=== PATIENT | male | born 1970 | race Caucasian/White ===

== ENCOUNTER 2020-09-13 15:49 | Emergency (ER) | payer OTHER, SELFPAY ==
--- NOTE | ~2020-09-13 | CT_ITS ---
EXAMINATION: CT BRAIN W/O DATE: 09/13/2020 16:36 INDICATION: Head injury TECHNIQUE: Computed tomography (CT) of the head was performed without intravenous contrast. The dose- length product was 681.00 mGy-cm. The mA was adjusted according to patient size. Iterative reconstruc tion technique was employed. COMPARISON: No prior studies for comparison. FINDINGS: Normal brain parenchymal volume for age. Normal mcfadden-white differentiation. No acute intrac ranial hemorrhage, infarction, mass or mass effect. There is left frontal scalp swelling. No ventriculomegaly or midline shift. Midline sagittal images demonstrate a normal corpus callosum, c raniovertebral junction and sella turcica. Basilar cisterns are patent. There is mucosal thickening of the ethmoid sinuses. Small left mastoid effusion. No depressed skull f ractures. IMPRESSION: 1. No acute intracranial abnormality. Reviewed, dictated and finalized at location B.
[2020-09-13 15:53] VITALS: BP 129/90; PULSE 66; RESP 18; O2SAT 100
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
[2020-09-13 17:57] VITALS: BP 120/84; PULSE 57; RESP 18; O2SAT 100
== END 2020-09-13 17:58 | disposition home or self-care (01) ==
PROVIDERS: Emergency Provider General Practice
DX: S01.112A Laceration without foreign body of left eyelid and periocular area, initial encounter (principal); E78.5 Hyperlipidemia, unspecified; I10 Essential (primary) hypertension; I25.2 Old myocardial infarction; Z95.5 Presence of coronary angioplasty implant and graft; Z87.442 Personal history of urinary calculi; Z79.02 Long term (current) use of antithrombotics/antiplatelets; Z79.82 Long term (current) use of aspirin; W21.04XA Struck by golf ball, initial encounter
CPT/HCPCS: 12011; 70450; 99284

== ENCOUNTER 2023-05-07 16:38 | Observation (INO) | payer OTHER, SELFPAY ==
--- NOTE | ~2023-05-07 | CT_ITS ---
EXAMINATION: CT abdomen pelvis wo con DATE: 05/07/2023 19:43 INDICATION: left flank pain TECHNIQUE: Computed tomography (CT) of the abdomen and pelvis was performed without intravenous contr ast. Automated exposure control and iterative reconstruction technique were employed. The dose-length product was 236.19 mGy-cm. COMPARISON: None. FINDINGS: Lower thorax: Coronary artery calcification. Small hiatal hernia. Liver: Normal. Biliary/Gallbladder: Gallbladder is normal. No bile duct dilation. Pancreas: No mass or duct dilation. Spleen: Normal. Adrenals:No mass. Kidneys: Multiple bilateral nephroliths, measuring up to 5 mm in the right lower pole and up to 11 mm in the left midpole. 10 mm and 6 mm stones are likely lodged at the left UPJ. Moderate left caliecta sis and pelviectasis. Moderate left perinephric stranding. No right hydronephrosis. No suspicious mas s. GI tract: No small or large bowel dilation. Normal appendix. Diverticulosis without diverticulitis. Mesentery/Peritoneum: No ascites, mass, or free air. Retroperitoneum: No mass. Atherosclerotic abdominal aortic and/or arterial calcifications. Pelvis: Pelvic organs are within normal limits. Soft Tissues: Soft tissues and body wall unremarkable. Bones: No acute osseous finding. Right-sided partial sacralization of L5. IMPRESSION: Left UPJ obstruction by two stones measuring 10 and 6 mm, with moderate obstructive uropathy. Reviewed, dictated and finalized at location K. SCRIPT UI DEVELOPER IMPRESSION: Left UPJ obstruction by two stones measuring 10 and 6 mm, with moderate obstruc tive uropathy.
--- NOTE | ~2023-05-07 | XR_ITS ---
EXAMINATION: XR retrograde pyelo w/stent LT INDICATION: Left-sided retrograde pyelogram TECHNIQUE: 32 intraoperative fluoroscopic images are submitted for review. Total fluoroscopic time wa s 102.1 seconds. COMPARISON: CT, 05/07/2023 FINDINGS: Fluoroscopic images demonstrate stones of the left kidney and left renal pelvis. A left int ernal ureteral stent is placed in expected position. IMPRESSION: 1. Stones in the left renal pelvis with internal ureteral stent placed in expected position. Please r efer to procedure note for full details. Reviewed, dictated and finalized at location B. ING MACHINE TENDER IMPRESSION: 1. Stones in the left renal pelvis with internal ureteral stent placed in expec ifeanyi position. Please refer to procedure note for full details.
[2023-05-07 17:07] VITALS: BP 132/92; PULSE 65; RESP 16; TEMP 36.8; O2SAT 100
[2023-05-07 19:08] LABS: Basophils Percent Auto 0.2 % (0.2-1.2); Eosinophils Percent Auto 0.1 % (0-4.4); Hematocrit 46.1 % (42.0-52.0); Hemoglobin 15.5 g/dL (14.0-18.0); Immature Granulocyte Absolute 0.09 K/mm3 (0.00-0.031); Immature Granulocyte Percent A 0.6 % (0-0.5); Lymphocytes Absolute Auto 1.51 K/mm3 (0.9-3.2); Lymphocytes Percent Auto 9.9 % (18.3-44.2); Mean Corpuscular HGB Conc 33.6 g/dl (32-36); Mean Corpuscular Volume 89.2 fl (80-100); Mean Platelet Volume 10.7 fl (7.4-10.4); Monocytes Absolute Auto 0.9 K/mm3 (0.1-0.6); Monocytes Percent Auto 5.7 % (2.6-8.5); Neutrophils Absolute Auto 12.7 K/mm3 (1.3-6.7); Neutrophils Percent Auto 83.5 % (45.5-73.1); Platelet Count Result 321 k/mm3 (150-375); Red Blood Count 5.17 M/mm3 (4.6-6.20); Red Cell Distribution Width 13.3 % (11.5-14.5); White Blood Count 15.2 K/mm3 (4.5-10.0)
[2023-05-07 19:09] LABS: Appearance Urine Clear (Clear); Bacteria Urine None Seen /hpf; Bilirubin Urine Negative (Negative); Blood Urine 3+ (Negative); Color Urine Yellow (Yellow); Glucose Urine UA Negative (Negative); Ketones Urine Trace mg/dL (Negative); Leukocyte Esterase Ur Negative LEU/UL (Negative); Nitrate Urine Negative (Negative); Non Pathogenic Casts 0-2; Protein Urine Negative (Negative); RBC Urine >100 /hpf (0-2); Specific Grav Ur 1.017 (1.001-1.035); Squamous Epithelial Cell Urine None seen /hpf (Few); WBC Urine 0-5 /hpf
[2023-05-07 19:15] LABS: Add Urine Microscopic? YES
[2023-05-07 19:18] LABS: Alanine Aminotransferase 31 U/L (6-50); Albumin Level 4.8 g/dL (3.5-5.1); Alkaline Phosphatase 158 U/L (38-126); Anion Gap 12 mmol/L (8-16); Aspartate Amino Transferase 31 U/L (17-59); Bilirubin,Total 0.8 mg/dL (0.2-1.3); Blood Urea Nitrogen 21 mg/dL (9-20); Carbon Dioxide 22 mmol/L (22-30); Chloride 107 mmol/L (98-107); Estimated CRCL calculation 50 ml/min; Estimated Glomerular Filt Rate 49; Glucose 133 mg/dL (65-110); Potassium 4.3 mmol/L (3.4-5.0); Sodium 141 mmol/L (137-145)
[2023-05-07] MEDS: fentaNYL CITRATE INJ (*CRX) 100 MCG/2 ML VIAL 50 MCG IV PUSH ×2 (19:47→21:42)
--- NOTE | 2023-05-07 20:18 | ED.MALEGU ---
HPI - Male Genitourinary General Chief complaint: Urogenital-Male Stated complaint: kidney stone Time Seen by Provider: 05/07/23 18:39 History of Present Illness HPI Narrative: Patient is a 52-year-old male with history of kidney stones who presents the ER with left-sided abdominal pain. Radiating into the left flank. Mild nausea. He has had some blood in his urine recently. No fevers or chills or sweats. He is on Plavix for heart disease. Related Data Allergies Allergy/AdvReac Type Severity Reaction Status Date / Time ketorolac [From Toradol] Allergy Swelling Verified 09/13/20 16:06 of Lip/Tongue/Throat Review of Systems Review of Systems: All systems reviewed & are unremarkable except as noted in HPI and below Constitutional: Constitutional: Reports no additional constitutional complaints ENT: Reports system reviewed and no additional complaints, except as documented Cardiovascular: Cardiovascular: Reports no additional cardiovascular complaints Respiratory: Respiratory: Reports no additional respiratory complaints Gastrointestinal: Gastrointestinal: Reports abdominal pain, Reports nausea and Denies vomiting Genitourinary: Genitourinary: Reports hematuria, Denies dysuria and Denies urinary frequency Comments: Positive flank pain PMFSH Past Medical History Medical History (Updated 05/07/23 @ 21:45 by Leif Johnson MD) Coronary artery disease (CAD) excluded Hyperlipidemia Hypertension Surgical History Surgical History (Updated 09/13/20 @ 17:33 by Ascencion Barron, PANormanC) H/O cardiac catheterization Social History Social History (Updated 09/13/20 @ 17:33 by Ascencion Barron, PA-C) Smoking status: Never smoker Exam Narrative: GENERAL: Well-appearing, well-nourished, and in no acute distress. HEAD: Normocephalic, atraumatic. EYES: PERRL and EOMI. CHEST: Clear to auscultation. No respiratory distress. HEART: Regular rate and rhythm. Normal peripheral pulses. ABDOMEN: Soft, nontender, nondistended. left-sided CVA tenderness EXTREMITIES: Normal range of motion. No edema. SKIN: Warm, dry, no rash. NEURO: Alert and oriented x3. PSYCH: Normal mood and affect. Course Course Emergency Course: Discussed with urology. Recommends admission for observation and stenting. NPO at midnight. Accepted by hospitalist service. Vital Signs Vital signs: Vital Signs Temperature 98.3 F 12/21/23 17:07 Pulse Rate 65 05/07/23 17:07 Respiratory Rate 16 05/07/23 17:07 Blood Pressure 132/92 H 05/07/23 17:07 Pulse Oximetry 100 05/07/23 17:07 Oxygen Delivery Room Air 05/07/23 17:07 Temperature 98.3 F 05/07/23 17:07 Pulse Rate 65 05/07/23 17:07 Respiratory Rate 16 05/07/23 17:07 Blood Pressure 132/92 H 05/07/23 17:07 Pulse Oximetry 100 05/07/23 17:07 Oxygen Delivery Room Air 05/07/23 17:07 MDM - Male Genitourinary Lab Data 05/07/23 19:00 05/07/23 19:00 Labs: Lab Results 05/07/23 05/07/23 Range/Units 18:47 19:00 WBC 15.2 H (4.5-10.0) K/mm3 RBC 5.17 (4.6-6.20) M/mm3 Hgb 15.5 (14.0-18.0) g/dL Hct 46.1 (42.0-52.0) % MCV 89.2 (80-100) fl MCH 30.0 (26-34) pg MCHC 33.6 (32-36) g/dl RDW 13.3 (11.5-14.5) % Plt Count 321 (150-375) k/mm3 MPV 10.7 H (7.4-10.4) fl Immature Gran % (Auto) 0.6 H (0-0.5) % Neut % (Auto) 83.5 H (45.5-73.1) % Lymph % (Auto) 9.9 L (18.3-44.2) % [place] % (Auto) 5.7 (2.6-8.5) % Eos % (Auto) 0.1 (0-4.4) % Baso % (Auto) 0.2 (0.2-1.2) % Lymph # (Auto) 1.51 (0.9-3.2) K/mm3 [place] # (Auto) 0.9 H (0.1-0.6) K/mm3 Eos # (Auto) 0.0 (0-0.3) K/mm3 Baso # (Auto) 0.0 (0.0-0.1) K/mm3 Abs Immat Gran (auto) 0.09 H (0.00-0.031) K/mm3 Absolute Neuts (auto) 12.7 H (1.3-6.7) K/mm3 Absolute Nucleated RBC 0.0 (0.0-0.012) K/mm3 Nucleated RBC % 0.0 (0.0-0.2) % Sodium 141 (137-145) mmol/L Potassium 4
[2023-05-07] MEDS: LACTATED RINGERS 1,000 ML 125 ML IV CONT (21:44)
[2023-05-08] VITALS (9 sets, daily range): BP systolic 84–137; BP diastolic 58–86; PULSE 57–70; RESP 12–18; TEMP 36.6–37.3; O2SAT 93–100
[2023-05-08] MEDS: HYDROcodone/acetaminophen (*CRX) 5-325 MG TABLET 1 TAB PO ×2 (00:24→14:05)
[2023-05-08] MEDS: fentaNYL CITRATE INJ (*CRX) 100 MCG/2 ML VIAL 50 MCG IV PUSH (05:48)
[2023-05-08] MEDS: LACTATED RINGERS 1,000 ML 125 ML IV CONT (05:48)
--- NOTE | 2023-05-08 07:11 | WPDURCON ---
Assessment and Plan Assessment and plan (1) Obstruction of ureteropelvic junction (UPJ) due to stone: Code(s): N20.1 - Calculus of ureter Status: Acute Assessment and Plan: Fairly large obstructing left UPJ and renal calculi Given inability stop anticoagulation and time scheduling limitations in OR, will plan to place a left ureteral stent today and ureteroscopy with laser lithotripsy in the [id number] Urology Consult Note HPI Date Seen: 05/08/23 Requesting Physician: Stephanie Gee MD Primary Care Provider: DOUGH PANNER PHYSICIAN Consult Narrative Narrative: Brigido Pineda Jr. is a 52 year old male, recently relocated here from the [facility], history of recurrent urolithiasis in the past. On occasion he has required both lithotripsy and ureteroscopy. He now has cardiac stents and has been told by his federal court of appeals law clerk not to stop anticoagulation. He presents with left flank pain without fever chills or gross hematuria. Imaging demonstrates an obstructing 6 mm UPJ calculus and a larger 10 mm renal pelvic calculus. Review of Systems Cardiovascular: Cardiovascular: Denies chest pain, Denies lightheadedness, Denies palpitations and Denies dyspnea Respiratory: Respiratory: Denies dyspnea Gastrointestinal: Gastrointestinal: Denies diarrhea, Denies nausea and Denies vomiting Genitourinary: Genitourinary: Denies hematuria and Denies dysuria Endocrine: Endocrine: Denies palpitations [facility] Past Medical History Medical History (Updated 05/07/23 @ 21:45 by Leif Johnson MD) Coronary artery disease (CAD) excluded Hyperlipidemia Hypertension Surgical History Surgical History (Updated 09/13/20 @ 17:33 by Ascencion Barron, PA-C) H/O cardiac catheterization Social History Social History (Updated 09/13/20 @ 17:33 by Ascencion Barron, PA-C) Smoking status: Never smoker Alcohol intake: current Substance use: never Substance use type: does not use Do You Feel Safe in your Home?: Yes Lack of Transportation: No Lack of Food: Never True Current Housing: I Have Housing Concerned About Future Housing: No Difficulty Paying Gas/Electric Bills: No Difficulty Paying for Meds: No Currently Unemployed: No Education: High School Diploma/GED Difficulty w/ Childcare or Family Care: No Spiritual care concerns: No Meds Home Medications and Allergies Home Medications Medication Instructions Recorded Confirmed Type amlodipine 5 mg tablet 5 mg PO DAILY 05/08/23 05/08/23 History atorvastatin 40 mg tablet 40 mg PO DAILY 05/08/23 05/08/23 History clopidogrel 75 mg tablet 75 mg PO DAILY 05/08/23 05/08/23 History Allergies Allergy/AdvReac Type Severity Reaction Status Date / Time ketorolac [From Toradol] Allergy Swelling Verified 09/13/20 16:06 of Lip/Tongue/Throat Vital Signs Vital Signs - 24 hr 05/07/23 17:07 05/08/23 00:05 05/08/23 00:09 Temperature 98.3 F 98.8 F Pulse Rate 65 70 Respiratory Rate 16 16 Blood Pressure 132/92 H 137/86 Pulse Oximetry 100 100 100 Oxygen Delivery Room Air Room Air 05/08/23 06:00 Temperature 99.2 F Pulse Rate 66 Respiratory Rate 16 Blood Pressure 125/76 Pulse Oximetry 98 Oxygen Delivery Exam Const: General: no acute distress Resp: Effort & Inspection: normal respiratory effort GI: Inspection: non-distended GI Palp: No abdominal tenderness and No Guarding due to palpation present (GI) Auscultation: normal bowel sounds Results Labs 05/07/23 19:00 05/07/23 19:00 Labs: Short CBC 05/07/23 Range/Units 19:00 WBC 15.2 H (4.5-10.0) K/mm3 Hgb 15.5 (14.0-18.0) g/dL Hct 46.1 (42.0-52.0) % Plt Count 321 (150-375) k/mm3 BMP 05/07/23 19:00 Sodium 141 Potassium 4.3 Chloride 107 Carbon Dioxide 22 BUN 21 H Creatinine 1.50 H Glucose 133 H Calcium 11.0 H Liver Function 05/07/23 Range/Units 19:00 Total
--- NOTE | 2023-05-08 07:29 | WPDHPUPDATE1 ---
History and Physical Update Update Date/Time: 05/08/23 07:29 History and Physical has been reviewed, including an updated exam of the patient. There are NO changes in the patient's condition. Risks, benefits, and alternatives have been discussed and questions answered. Patient agrees to proceed with procedure.
[2023-05-08] MEDS: amLODIPine BESYLATE 5 MG TABLET PO (08:01)
--- NOTE | 2023-05-08 08:58 | PC.NURSE ---
Patient down to pre op via wheelchair.
--- NOTE | 2023-05-08 09:14 | WPDANESEPPF ---
Anes - Initial Pre Proc Eval Procedure: Operation Date: 05/08/23 10:30 Proposed Procedures p Cystoscopy, Left Retrograde Pyelogram, Left Stent Placement - Hector Lilly MD Date/Time: 05/08/23 09:14 Surgeon: Stephanie Gee MD Pre Op Diagnosis: UPJ Obstruction Patient Data Age: 52 Gender: M Height: 1.73 m Weight: 84 kg Last Vital Signs Temp 37.3 C 05/08/23 06:00 Pulse 66 05/08/23 06:00 Resp 16 05/08/23 06:00 BP 125/76 05/08/23 06:00 Pulse Ox 98 05/08/23 06:00 O2 Del Method Room Air 05/08/23 00:09 Allergies Allergy/AdvReac Type Severity Reaction Status Date / Time ketorolac [From Toradol] Allergy Swelling Verified 05/08/23 09:15 of Lip/Tongue/Throat Home Medications Medication Instructions Recorded Confirmed Type amlodipine 5 mg tablet 5 mg PO DAILY 05/08/23 05/08/23 History atorvastatin 40 mg tablet 40 mg PO DAILY 05/08/23 05/08/23 History clopidogrel 75 mg tablet 75 mg PO DAILY 05/08/23 05/08/23 History Laboratory Tests 05/07/23 05/07/23 18:47 19:00 WBC 15.2 H K/mm3 (4.5-10.0) RBC 5.17 M/mm3 (4.6-6.20) Hgb 15.5 g/dL (14.0-18.0) Hct 46.1 % (42.0-52.0) MCV 89.2 fl (80-100) MCH 30.0 pg (26-34) MCHC 33.6 g/dl (32-36) RDW 13.3 % (11.5-14.5) Plt Count 321 k/mm3 (150-375) MPV 10.7 H fl (7.4-10.4) Immature Gran % (Auto) 0.6 H % (0-0.5) Neut % (Auto) 83.5 H % (45.5-73.1) Lymph % (Auto) 9.9 L % (18.3-44.2) [place] % (Auto) 5.7 % (2.6-8.5) Eos % (Auto) 0.1 % (0-4.4) Baso % (Auto) 0.2 % (0.2-1.2) Lymph # (Auto) 1.51 K/mm3 (0.9-3.2) [place] # (Auto) 0.9 H K/mm3 (0.1-0.6) Eos # (Auto) 0.0 K/mm3 (0-0.3) Baso # (Auto) 0.0 K/mm3 (0.0-0.1) Abs Immat Gran (auto) 0.09 H K/mm3 (0.00-0.031) Absolute Neuts (auto) 12.7 H K/mm3 (1.3-6.7) Absolute Nucleated RBC 0.0 K/mm3 (0.0-0.012) Nucleated RBC % 0.0 % (0.0-0.2) Sodium 141 mmol/L (137-145) Potassium 4.3 mmol/L (3.4-5.0) Chloride 107 mmol/L (98-107) Carbon Dioxide 22 mmol/L (22-30) Anion Gap 12 mmol/L (8-16) BUN 21 H mg/dL (9-20) Creatinine 1.50 H mg/dL (0.7-1.3) Estim Creat Clear Calc 50 ml/min Estimated GFR 49 L (59 - ) Glucose 133 H mg/dL (65-110) Calcium 11.0 H mg/dL (8.4-10.2) Total Bilirubin 0.8 mg/dL (0.2-1.3) AST 31 U/L (17-59) ALT 31 U/L (6-50) Alkaline Phosphatase 158 H U/L (38-126) Total Protein 8.0 g/dL (6.3-8.2) Albumin 4.8 g/dL (3.5-5.1) Urine Color Yellow (Yellow) Urine Appearance Clear (Clear) Urine pH 7.0 (5.0-9.0) Ur Specific [place] 1.017 (1.001-1.035) Urine Protein Negative mg/dL (Negative) Urine Glucose (UA) Negative mg/dL (Negative) Urine Ketones Trace H mg/dL (Negative) Ur Blood (Man) 3+ H (Negative) Urine Nitrate Negative (Negative) Urine Bilirubin Negative (Negative) Urine Urobilinogen 1.0 mg/dL (<2.0) Leukocyte Esterase Rfl Negative RICARDO/UL (Negative) Urine RBC >100 H /hpf (0-2) Urine WBC 0-5 /hpf Ur Squamous Epith Cells None seen /hpf (Few) Urine Bacteria None seen /hpf Urine Casts 0-2 Patient hx anesthesia problems: other (difficult intub) Family hx anesthesia problems: none Results Review: All pre-operative results and documents have been reviewed as part of the pre-operative evaluation. [facility] Past Medical History Medical History Coronary artery disease (CAD) excluded Hyperlipidemia Hypertension Surgical History Surgical History H/O cardiac catheterizati
[2023-05-08] MEDS: LACTATED RINGERS 1,000 ML 30 ML IV CONT (09:22)
[2023-05-08] MEDS: ceFAZolin 2 GM/D5W 50 ML 2 GM/50 ML BAG IVPB (09:34)
[2023-05-08] MEDS: LIDOCAINE HCL 2% GEL UROJET 10 ML PKG MUCOUS MEM (09:49)
--- NOTE | 2023-05-08 10:00 | P.OP_ITS ---
Procedure Note - Detailed Date of Procedure 05/08/23 Pre-op Diagnosis Left renal calculi Post-op Diagnosis Same Procedure Performed Cystoscopy, left retrograde pyelography and left ureteral stent placement Surgeon Hector Lilly MD Anesthesia General Description of Procedure patient is brought to the operative suite where he was prepped draped in routine sterile fashion while in dorsal lithotomy position after the uneventful induction of a general LMA anesthetic. Cystoscopy was undertaken with a 19 F r igid cystoscope. He has minimal prostatic hyperplasia. There was no intravesical foreign body or neoplasm. Has a single orthotopic ureteral orifice bilaterally. A 0.035 in glidewire was advanced into his left renal pelvis. His stones are calcified. Retrograde pyelography was obtained over a [place] catheter to ensure appropriate placement of a 4.8 F variable length stent with the proximal coil in the renal pelvis and distal coil in the bladder. Patient be discharged this afternoon. My office will contact him to arrange left ureteroscopy with laser lithotripsy and stone extraction. Urine Output 250 Drains Yes Pathology None sent Complications No immediate complications
--- NOTE | 2023-05-08 10:57 | PC.NURSE ---
Pt. back from surgery via stretcher.
--- NOTE | 2023-05-08 13:36 | PM.SD2 ---
Same Day Admit/Disch: HPI History of Present Illness Chief complaint: UPJ Obstruction Narrative: Brigido Pineda Jr. is a 52 year old male with hx of hypercalcemia and kidney stones here for flank pain. Patient has hx of kidney stones and stent placement. He has had hypercalcemia for over 20 years. He underwent an extensive workup for this without a clear diagnosis. No family history of hypercalcemia. He developed left sided flank pain the day before admission. Feels very similar to to prior kidney stones. no fever or chills. No urinary symptoms. Complete ROS was otherwise unremarkable. He presented to the ED for evaluation. [facility] Past Medical History Medical History Coronary artery disease (CAD) excluded IA with stent x2 placed Hypercalcemia Hyperlipidemia Hypertension Kidney stones Surgical History Surgical History (Updated 05/08/23 @ 13:41 by Baljeet Keyes MD) H/O cardiac catheterization Hx of tonsillectomy Family History Family History (Updated 05/08/23 @ 13:41 by Baljeet Keyes MD) Mother Breast cancer Diabetes mellitus Hypertension Social History Social History (Updated 05/08/23 @ 13:43 by Baljeet Keyes MD) Social History: Lives with significant other. Lifelong nonsmoker. Drinks one alcohol drink per week. No drug use. Full code. Nominates his significnat other to make medical decisions for him if he is unable. Moved to the area 4 months ago. Smoking status: Never smoker Alcohol intake: current Substance use: never Substance use type: does not use Do You Feel Safe in your Home?: Yes Lack of Transportation: No Lack of Food: Never True Current Housing: I Have Housing Concerned About Future Housing: No Difficulty Paying Gas/Electric Bills: No Difficulty Paying for Meds: No Currently Unemployed: No Education: High School Diploma/GED Difficulty w/ Childcare or Family Care: No Spiritual care concerns: No Same Day Admit/Disch: Med Pre-admit Medications Home Medications Medication Instructions Recorded Confirmed Type amlodipine 5 mg tablet 5 mg PO DAILY 05/08/23 05/08/23 History atorvastatin 40 mg tablet 40 mg PO DAILY 05/08/23 05/08/23 History clopidogrel 75 mg tablet 75 mg PO DAILY 05/08/23 05/08/23 History hydrocodone 5 mg-acetaminophen 325 1 - 2 tablet PO Q6H PRN pain #20 05/08/23 Rx mg tablet tabs Review of Systems Review of Systems All systems reviewed & are unremarkable except as noted in HPI and below Exam Narrative: AF 97.8 110/77 57 12 93% ra Gen - well-nourished, well-developed male in no acute respiratory distress who is nontoxic-appearing lying semi recumbent in bed HEENT - normocephalic. Atraumatic. Pupils equal round and reactive. Extraocular motions intact. Sclera clear and anicteric. Nares patent. Oropharynx was not able to visualized. No oral lesions. Moist mucous membranes. Tongue was midline. Palate justine symmetrically. No facial asymmetry. Neck - neck was supple. No dominant adenopathy, thyromegaly or masses. Chest - lungs are clear to auscultation bilaterally. No wheezes or crackles. CV - heart was regular rate and rhythm. S1-S2. No murmurs gallops or rubs. Abd - abdomen was soft. Mild left flank pain. Nondistended. Positive bowel sounds. No organomegaly or masses. Back - no CVA tenderness Ext - no clubbing, cyanosis or edema. 2+ DP pulses bilaterally. Neuro - patient is alert and oriented x4. Strength is 5/5 in both upper and lower extremities. Cranial nerves 2-12 are intact. Speech is clear. Psych - normal mood and affect. Patient is pleasant and cooperative. Skin - warm and dry. No rashes noted. DS: Data Data Completed and Pending Labs on day of discharge: Labs from last 24 hours 05/07/23 05/07/23 19:00 18:47 WBC 15.2 H RBC 5.17 Hgb 15.5 Hct 46.1 MCV 89.2 MCH 30.0 MCHC 33.6 RDW 13.3 Plt Count 321 MPV 10.7
== END 2023-05-08 17:25 | disposition home or self-care (01) ==
LOC: ANHED 21:45 → ANH3MEDSUR 05-08 07:14
PROVIDERS: Urology; Admitting Provider Internal Medicine; Emergency Provider Emergency Medicine; Visit Provider Internal Medicine
PROC: (CPT 52352; principal; 2023-05-08 10:30)
DX: N13.5 Crossing vessel and stricture of ureter without hydronephrosis (principal); N20.1 Calculus of ureter; N17.9 Acute kidney failure, unspecified; I25.10 Atherosclerotic heart disease of native coronary artery without angina pectoris; E78.5 Hyperlipidemia, unspecified; I10 Essential (primary) hypertension; E83.52 Hypercalcemia; D72.829 Elevated white blood cell count, unspecified; R74.8 Abnormal levels of other serum enzymes; R79.89 Other specified abnormal findings of blood chemistry; F10.90 Alcohol use, unspecified, uncomplicated; Z79.02 Long term (current) use of antithrombotics/antiplatelets; Z79.891 Long term (current) use of opiate analgesic; Z79.899 Other long term (current) drug therapy
CPT/HCPCS: 52332; 36415; 74176; 74420; 80053; 81001; 85025; 99285; A9270; C1758; C1769; C2617; G0378; J0690; J1100; J2250; J2405; J2704; J3010; J7120; Q9966

== ENCOUNTER 2023-06-10 09:00 | Outpatient (CLI) | payer OTHER, SELFPAY ==
--- NOTE | 2023-06-10 09:07 | ECG_ITS ---
Measurements Intervals [place] Rate: 68 P: 35 AK: 150 QRS: 45 QRSD: 105 T: 57 QT: 413 QTc: 441 Interpretive Statements SINUS RHYTHM VENTRICULAR PREMATURE COMPLEXES ST ELEVATION IN ANTEROLATERAL LEADS- PROBABLY EARLY REPOLARIZATION BASELINE ARTIFACT- I, III, AVR, AVL, AVF, V1 BORDERLINE ECG NO PREVIOUS ECG AVAILABLE FOR COMPARISON Electronically Signed On 06-10-2023 9:23:27 [employer] by Eric Terry D.O.
== END 2023-06-10 09:01 | disposition home or self-care (01) ==
PROVIDERS: PCP Family Medicine Sports Medicine; Visit Provider Urology
DX: Z01.818 Encounter for other preprocedural examination (principal); I10 Essential (primary) hypertension
CPT/HCPCS: 93005

== ENCOUNTER 2023-06-11 00:26 | Day surgery (SDC) | payer OTHER, SELFPAY ==
[2023-05-28 09:07] VITALS: BMI 28.1
--- NOTE | 2023-05-28 09:14 | PC.NURSE ---
Addendum entered by Cece Michel RN 06/03/23 11:03: PT TO ARRIVE AT 9:00 ON 06/11/23 FOR SURGERY AT 11:00. Original Note: Report to the Outpatient Waiting Room, entrance under the green pavilion located off [facility], at time 11:00 on date 06/04/23. Planned Procedure Time: 1:00. Time changes happen often and if your time is changed the preop area will call you the afternoon before. - You and your visitor will be asked to self-screen and do not enter if you have any COVID symptoms. - A mask is optional within the hospital at this time. Patients may have clear liquids (water, carbonated beverages, clear teas, apple juice) until 3 hours prior to surgery (10:00) with a maximum of 20 ounces. - No food from midnight until time of surgery Take the following medications with a SIP of water the morning of surgery: AMLODIPINE DO NOT STOP ANY OF YOUR OTHER PRESCRIPTION MEDICATIONS PRIOR TO SURGERY ?EXCEPT THE FOLLOWING Medications to discontinue per physician: PLAVIX Date to take last dose: PT TO CHECK WITH DR. QUINN Please no make-up, nail belgian, hairspray, perfume, deodorant, or body powder the day of surgery. No jewelry (including any body piercings) or valuables the day of surgery, leave them at home. Please take a shower or bath the night before, or the morning of, surgery with an antibacterial soap. Wear comfortable, loose fitting clothing. - Jewelry must be removed prior to entering the operating room. Rings and piercings that are not removed may be cut off. - The hospital will not accept responsibility for valuables. - Please leave all valuables, including medications, at home the day of surgery. If you are going home after surgery, a licensed commercial truck driver must drive you home. - NO public transportation without another adult if you receive anesthesia. - We recommend that an adult stay with you for 24 hours following discharge. - We also recommend that you do not drive, make important decision, drink alcoholic beverages, or take any drugs that were not prescribed by your health care provider for at least 24 hours after your discharge time. Follow any additional instructions given to you from your surgeon. If you or anyone in your household have experienced Covid symptoms in the past week, please notify your surgeon or the nurse liaison at the phone number below for possible testing. Telephone instructions given to SANDY DOOLEY and asked if any additional questions and then verbalized understanding. Patient advised to call surgeon office or pre surgery nurse liaison [phone] if any additional questions.
--- NOTE | 2023-06-03 11:04 | PC.NURSE ---
Pt states no changes in medications or health history since initial interview. New pre-op instructions reviewed with pt. Pt denies further questions at this time.
--- NOTE | 2023-06-05 07:36 | PM.HPGS ---
History of Present Illness History of Present Illness Consent: Risks, benefits, and alternatives have been discussed and questions answered. Patient agrees to proceed with procedure. Chief complaint: Large Left Renal Stones Narrative: Brigido Pineda Jr. is a 52 year old male recently relocated from the [facility]. He has a history of urolithiasis. Recent CT imaging demonstrates a 1 cm left renal pelvic stone and 6 mm left UPJ calculus. Patient is anticoagulated and is at risk if he were to discontinue. After discussion of options we have elected to proceed with cystoscopy with left ureteroscopy, laser lithotripsy with stone extraction, possible retrograde pyelography and stent placement. He is aware of the risks including, but not limited to, adverse cardiopulmonary events, need for additional procedures, hematuria, ureteral injury with stricture. Review of Systems Review of Systems: All systems reviewed & are unremarkable except as noted in HPI and below PMFSH Past Medical History Medical History Coronary artery disease (CAD) excluded [place] with stent x2 placed Hypercalcemia Hyperlipidemia Hypertension Kidney stones Surgical History Surgical History (Updated 05/08/23 @ 13:41 by Baljeet Keyes MD) H/O cardiac catheterization Hx of tonsillectomy Family History Family History (Updated 05/08/23 @ 13:41 by Baljeet Keyes MD) Mother Breast cancer Diabetes mellitus Hypertension Social History Social History (Updated 05/08/23 @ 13:43 by Baljeet Keyes MD) Social History: Lives with significant other. Lifelong nonsmoker. Drinks one alcohol drink per week. No drug use. Full code. Nominates his significnat other to make medical decisions for him if he is unable. Moved to the area 4 months ago. Smoking status: Never smoker Alcohol intake: current Substance use: never Substance use type: does not use Do You Feel Safe in your Home?: Yes Lack of Transportation: No Lack of Food: Never True Current Housing: I Have Housing Concerned About Future Housing: No Difficulty Paying Gas/Electric Bills: No Difficulty Paying for Meds: No Currently Unemployed: No Education: High School Diploma/GED Difficulty w/ Childcare or Family Care: No Living arrangements: with family Spiritual care concerns: No Meds Home Medications and Allergies Home Medications Medication Instructions Recorded Confirmed Type amlodipine 5 mg tablet 5 mg PO DAILY 05/08/23 06/03/23 History atorvastatin 40 mg tablet 40 mg PO DAILY 05/08/23 06/03/23 History clopidogrel 75 mg tablet 75 mg PO DAILY 05/08/23 06/03/23 History Allergies Allergy/AdvReac Type Severity Reaction Status Date / Time ketorolac [From Toradol] Allergy Severe Swelling Verified 06/03/23 11:03 of Lip/Tongue/Throat Exam Const: General: no acute distress Resp: Effort & Inspection: normal respiratory effort GI: Inspection: non-distended GI Palp: No abdominal tenderness and No Guarding due to palpation present (GI) Auscultation: normal bowel sounds Assessment and Plan Assessment and plan (1) Left renal stone: Code(s): N20.0 - Calculus of kidney Status: Acute Assessment and Plan: cystoscopy, left ureteroscopy with laser lithotripsy, stone extraction, possible retrograde pyelography and stent placement
--- NOTE | 2023-06-10 13:04 | WPDANESEPPF ---
Anes - Initial Pre Proc Eval Procedure: Operation Date: 06/11/23 09:30 Proposed Procedures p Cystoscopy, Left Ureteroscopy with Left Stone Extraction, Holmium Laser Lithotripsy, Left Retrograde Pyelogram, Possible Left Stent Placement - Hector Lilly MD Date/Time: 06/10/23 13:04 Surgeon: Hector Lilly MD Pre Op Diagnosis: Large Left Renal Stones Patient Data Age: 52 Gender: M Height: 1.73 m Weight: 83.9 kg Allergies Allergy/AdvReac Type Severity Reaction Status Date / Time ketorolac [From Toradol] Allergy Severe Swelling Verified 06/11/23 07:30 of Lip/Tongue/Throat Home Medications Medication Instructions Recorded Confirmed Type amlodipine 5 mg tablet 5 mg PO DAILY 05/08/23 06/11/23 History atorvastatin 40 mg tablet 40 mg PO DAILY 05/08/23 06/11/23 History clopidogrel 75 mg tablet 75 mg PO DAILY 05/08/23 06/11/23 History cephalexin 500 mg capsule 500 mg PO Q8H #9 caps 06/11/23 Rx hydrocodone 5 mg-acetaminophen 325 1 - 2 tablet PO Q6H PRN pain #20 06/11/23 Rx mg tablet tabs Patient hx anesthesia problems: none Family hx anesthesia problems: none Results Review: All pre-operative results and documents have been reviewed as part of the pre-operative evaluation. [facility] Past Medical History Medical History (Updated 06/05/23 @ 07:38 by Hector Lilly MD) Coronary artery disease (CAD) excluded [place] with stent x2 placed Hypercalcemia Hyperlipidemia Hypertension Kidney stones Surgical History Surgical History (Updated 06/10/23 @ 13:05 by Arnaud Gibson DO) H/O cardiac catheterization History of coronary artery stent placement Hx of tonsillectomy Family History Family History (Updated 05/08/23 @ 13:41 by Baljeet Keyes MD) Mother Breast cancer Diabetes mellitus Hypertension Social History Social History (Updated 05/08/23 @ 13:43 by Baljeet Keyes MD) Social History: Lives with significant other. Lifelong nonsmoker. Drinks one alcohol drink per week. No drug use. Full code. Nominates his significnat other to make medical decisions for him if he is unable. Moved to the area 4 months ago. Smoking status: Never smoker Alcohol intake: current Substance use: never Substance use type: does not use Do You Feel Safe in your Home?: Yes Lack of Transportation: No Lack of Food: Never True Current Housing: I Have Housing Concerned About Future Housing: No Difficulty Paying Gas/Electric Bills: No Difficulty Paying for Meds: No Currently Unemployed: No Education: High School Diploma/GED Difficulty w/ Childcare or Family Care: No Living arrangements: with family Spiritual care concerns: No Anes - Eval Final PreProcedure Day of Procedure 06/10/23 13:04 Patient weight: obese Heart: regular rate and rhythm Lungs: clear to auscultation Airway: Mallampati scale class III Neurological: alert and oriented Last oral intake: >/= 8 hours ASA classification: III Emergent: no Anesthetic plan: proceed Anesthesia type and monitoring: general LMA and standard monitoring Results Review: All pre-operative results and documents have been reviewed as part of the pre-operative evaluation. Informed Consent: The patient's anesthetic plan and its attendant risks and benefits were discussed with the patient/family/POA. Questions were solicited and answers provided to the satisfaction of the patient/family/POA.
[2023-06-11] VITALS (8 sets, daily range): BP systolic 133–158; BP diastolic 77–95; PULSE 58–86; RESP 12–20; TEMP 36.2–36.5; O2SAT 97–100
--- NOTE | ~2023-06-11 | XR_ITS ---
EXAMINATION: XR retrograde pyelo w/stent LT DATE: 06/11/2023 09:51 INDICATION: Left internal ureteral stent placement TECHNIQUE: Fluoroscopic images from a left internal ureteral stent placement are submitted for review . 86 seconds of fluoroscopy time. FINDINGS: There is a left double-J internal ureteral stent projecting in expected position, with proximal [place] loop at the level of the renal pelvis and distal loop in the pelvis within the bladder lumen. IMPRESSION: 1. Left internal ureteral stent placement. Please refer to real-time procedural findings for detail s. Reviewed, dictated and finalized at location L. [employer] IMPRESSION: 1. Left internal ureteral stent placement. Please refer to real-time procedur al findings for details.
--- NOTE | 2023-06-11 06:40 | WPDHPUPDATE1 ---
History and Physical Update Update Date/Time: 06/11/23 06:40 History and Physical has been reviewed, including an updated exam of the patient. There are NO changes in the patient's condition. Risks, benefits, and alternatives have been discussed and questions answered. Patient agrees to proceed with procedure.
[2023-06-11] MEDS: LACTATED RINGERS 1,000 ML 30 ML IV CONT ×2 (07:40→09:52)
[2023-06-11] MEDS: ceFAZolin 2 GM/D5W 50 ML 2 GM/50 ML BAG IVPB (08:25)
[2023-06-11] MEDS: LIDOCAINE HCL 2% GEL UROJET 10 ML PKG MUCOUS MEM (08:41)
--- NOTE | 2023-06-11 09:52 | W.PM.PROC2 ---
Procedure Note - Detailed Date of Procedure 06/11/23 Pre-op Diagnosis Left Ureteral and Renal Stones Post-op Diagnosis Same Procedure Performed Cystoscopy, left ureteral stent removal, left ureteroscopy with laser lithotripsy, stone extraction, retrograde pyelogram and stent replacement Surgeon Hector Lilly MD Anesthesia General Description of Procedure patient brought the op suite was prepped draped in routine sterile fashion while dorsal lithotomy position after the uneventful induction of a general LMA anesthetic. Cystoscopy was undertaken with a 19 F rigid cystoscope. There was no urethral stricture. Bladder mucosa is normal. 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 The indwelling stent is grasped and brought to the external urethral meatus. A 0.035 in glidewire was advanced in the left renal pelvis and the ureter was dilated with an 8 F 10 F dilator. The safety wire was placed and an 11 F/ 13 F access sheath was placed. Ureteroscopy was undertaken with a 7.5 F flexible ureteral scope. I 1st encountered his 6 mm left proximal ureteral stone. Using a 273 micron [place] laser fiber I fractured this into smaller pieces and extracted all pieces. I then performed a retrograde pyelogram and left retinoscopy. I inspected all calices. He has 2 moderate size, 70 mm stones in his left lower pole calyx. I tried to grasp these and moved to an upper pole calyx without success. I was able, however, to deliver laser lithotripsy to the stones. It was fractured into pieces all estimated to be 2 mm or less using a dusting technique. Any large pieces were removed with a disposable stone basket. A 4.8 F variable length stent is repositioned with the proximal coil in the renal pelvis and distal coil in the bladder. The string was left attached. He tolerated this procedure well. Drains Yes Packing No Pathology Yes Complications No immediate complications Condition Stable Disposition PACU
[2023-06-11] MEDS: fentaNYL CITRATE INJ (*CRX) 100 MCG/2 ML VIAL 25 MCG IV PUSH ×4 (10:20→10:42)
--- NOTE | 2023-06-11 10:28 | SUR.PHASEI ---
Notified Dr. Gibson regarding patient's elevated BP. Ordered to instruct patient to take amlodipine when discharged.
[2023-06-11] MEDS: oxyCODONE HCL (*CRX) 5 MG TAB IR PO (11:14)
== END 2023-06-11 11:38 | disposition home or self-care (01) ==
PROVIDERS: PCP Family Medicine Sports Medicine; Visit Provider Urology
PROC: (CPT 52352; principal; 2023-06-11 09:30)
DX: N20.0 Calculus of kidney (principal); I10 Essential (primary) hypertension; E83.52 Hypercalcemia; E78.5 Hyperlipidemia, unspecified; E66.9 Obesity, unspecified; Z68.27 Body mass index [BMI] 27.0-27.9, adult; Z79.02 Long term (current) use of antithrombotics/antiplatelets; Z98.890 Other specified postprocedural states; Z98.61 Coronary angioplasty status; Z86.79 Personal history of other diseases of the circulatory system; Z87.442 Personal history of urinary calculi; Z80.3 Family history of malignant neoplasm of breast
CPT/HCPCS: 52356; 74420; 82365; 88300; 93005; A9270; C1769; C1894; C2617; J0690; J2250; J2405; J2704; J3010; J7120; Q9966

== ENCOUNTER 2023-09-09 11:05 | Outpatient (CLI) | payer OTHER, SELFPAY ==
[2023-09-09 11:47] LABS: Basophils Absolute Auto 0.1 K/mm3 (0.0-0.1); Basophils Percent Auto 0.7 % (0.2-1.2); Eosinophils Absolute Auto 0.7 K/mm3 (0-0.3); Eosinophils Percent Auto 8.4 % (0-4.4); Immature Granulocyte Absolute 0.02 K/mm3 (0.00-0.031); Immature Granulocyte Percent A 0.2 % (0-0.5); Lymphocytes Absolute Auto 3.04 K/mm3 (0.9-3.2); Lymphocytes Percent Auto 35.8 % (18.3-44.2); Mean Corpuscular HGB Conc 33.3 g/dl (32-36); Mean Corpuscular Hemoglobin 29.8 pg (26-34); Mean Corpuscular Volume 89.3 fl (80-100); Mean Platelet Volume 11.4 fl (7.4-10.4); Monocytes Absolute Auto 0.8 K/mm3 (0.1-0.6); Monocytes Percent Auto 9.9 % (2.6-8.5); Neutrophils Absolute Auto 3.8 K/mm3 (1.3-6.7); Platelet Count Result 292 k/mm3 (150-375); Red Blood Count 5.04 M/mm3 (4.6-6.20); Red Cell Distribution Width 13.9 % (11.5-14.5); White Blood Count 8.5 K/mm3 (4.5-10.0)
[2023-09-09 12:04] LABS: Alanine Aminotransferase 25 U/L (6-50); Albumin Level 4.7 g/dL (3.5-5.1); Alkaline Phosphatase 125 U/L (38-126); Anion Gap 9 mmol/L (4-12); Aspartate Amino Transferase 22 U/L (17-59); Bilirubin,Total 0.7 mg/dL (0.2-1.3); Blood Urea Nitrogen 17 mg/dL (9-20); Carbon Dioxide 20 mmol/L (22-30); Chloride 113 mmol/L (98-107); Cholesterol 110 mg/dL (0-200); Estimated Glomerular Filt Rate > 60; Glucose 119 mg/dL (65-110); HDL Direct 39 mg/dL; Potassium 3.7 mmol/L (3.4-5.0); Sodium 142 mmol/L (137-145); Triglycerides 136 mg/dL (<150)
[2023-09-09 12:16] LABS: LDL Cholesterol Direct 54 mg/dL
== END 2023-09-09 11:06 | disposition home or self-care (01) ==
LOC: ANHLAB 11:07
PROVIDERS: PCP Family Medicine Sports Medicine; Visit Provider Internal Medicine Cardiovascular Disease
DX: I25.10 Atherosclerotic heart disease of native coronary artery without angina pectoris (principal)
CPT/HCPCS: 36415; 80053; 80061; 85025